=== PATIENT | male | born 1980 | race American Indian/Alaskan Native ===

== ENCOUNTER 2016-11-09 22:04 | Emergency (ER) | payer SELFPAY ==
[2016-11-09 22:40] VITALS: BP 136/96
[2016-11-10] MEDS ORDERED: MOTRIN PO ONE (00:05)
--- NOTE | 2016-11-10 00:06 | Emergency Department Report ---
- General Chief Complaint: Wound/Laceration Stated Complaint: CUT ON NOSE Time Seen by Provider: 11/09/16 23:47 Source: patient Mode of arrival: Ambulatory Limitations: No Limitations - History of Present Illness Initial Comments: This is a 36-year-old male nontoxic, well nourished in appearance, no acute signs of distress that presents to the ED complaining of laceration to the left side status post direct blow from a car door. Patient stated around 9 PM today he opened the door and hit his left side nose. Patient denies any loss of consciousness or head trauma. Patient stated received a tetanus shot 2 years ago when he was in correction. Patient denies any fever, chills, headache, bleeding, nausea, vomiting, chest pain or shortness of breath. Patient stated upon arrival he had a headache that was slight but is subsided currently. Patient denies any allergies or significant past medical history. -: Gradual, This evening Location: other (left nose) Place: outdoors Patient Tetanus UTD: Yes Context: accidental Associated Symptoms: none, pain. denies: loss of feeling/numbness, suspect foreign body present, unable to move injured part, weakness followed by dizziness, nausea/vomiting, fever - Related Data Previous Rx's Medication Instructions Recorded Last Taken Type predniSONE [Deltasone] 1 tab PO BID #8 tablet 03/21/13 Unknown Rx Cephalexin [Keflex] 500 mg PO Q8HR 5 Days 11/10/16 Unknown Rx Ibuprofen [Motrin 600 MG tab] 600 mg PO Q8H PRN #30 tablet 11/10/16 Unknown Rx Allergies Allergy/AdvReac Type Severity Reaction Status Date / Time No Known Allergies Allergy Verified 03/21/13 03:48 ED Review of Systems ROS: Stated complaint: CUT ON NOSE Other details as noted in HPI Constitutional: denies: chills, fever Eyes: denies: eye pain, eye discharge, vision change ENT: denies: ear pain, throat pain Respiratory: denies: cough, shortness of breath, wheezing Cardiovascular: denies: chest pain, palpitations Endocrine: no symptoms reported Gastrointestinal: denies: abdominal pain, nausea, diarrhea Genitourinary: denies: urgency, dysuria Musculoskeletal: denies: back pain, joint swelling, arthralgia Skin: denies: rash, lesions Neurological: denies: headache, weakness, paresthesias Psychiatric: denies: anxiety, depression Hematological/Lymphatic: denies: easy bleeding, easy bruising ED Past Medical Hx - Past Medical History Previous Medical History?: No - Surgical History Past Surgical History?: Yes Additional Surgical History: left leg surgery - Social History Smoking Status: Never Smoker Substance Use Type: Alcohol - Medications Home Medications: Home Medications Medication Instructions Recorded Confirmed Last Taken Type predniSONE [Deltasone] 1 tab PO BID #8 tablet 03/21/13 Unknown Rx Cephalexin [Keflex] 500 mg PO Q8HR 5 Days 11/10/16 Unknown Rx Ibuprofen [Motrin 600 MG tab] 600 mg PO Q8H PRN #30 tablet 11/10/16 Unknown Rx ED Physical Exam - General Limitations: No Limitations General appearance: alert, in no apparent distress - Head Head exam: Present: atraumatic, normocephalic, normal inspection - Eye Eye exam: Present: normal appearance, PERRL, EOMI. Absent: scleral icterus, conjunctival injection, nystagmus, periorbital swelling, periorbital tenderness Pupils: Present: normal accommodation - ENT ENT exam: Present: normal exam, normal orophraynx, mucous membranes moist, TM's normal bilaterally, normal external ear exam - Neck Neck exam: Present: normal inspection, full ROM. Absent: tenderness, meningismus, lymphadenopathy, thyromegaly - Respiratory Respiratory exam: Present: normal lung sounds bilaterally. Absent: respiratory distress, wheezes, rales, rhonchi, stridor, chest wall tenderness, accessory muscle use, decreased breath sounds, prolonged expiratory - Cardiovascular Cardiovascular Exam: Present: regular rate, normal rhythm, normal heart sounds. Absent: bradycardia, tachycardia, irregular rhythm, systolic murmur, diastolic murmur, rubs, gallop - GI/Abdominal GI/Abdominal exam: Present: soft, normal bowel sounds. Absent: distended, tenderness, guarding, rebound, rigid, diminished bowel sounds - Rectal Rectal exam: Present: deferred - Extremities Exam Extremities exam: Present: normal inspection, full ROM, normal capillary refill. Absent: tenderness, pedal edema, joint swelling, calf tenderness - Back Exam Back exam: Present: normal inspection, full ROM. Absent: tenderness, CVA tenderness (R), CVA tenderness (L), muscle spasm, paraspinal tenderness, vertebral tenderness, rash noted - Neurological Exam Neurological exam: Present: alert, oriented X3, CN II-XII intact, normal gait, reflexes normal - Psychiatric Psychiatric exam: Present: normal affect, normal mood - Skin Skin exam: Present: warm, dry, intact, normal color. Absent: rash - Other Other exam information: 1 cm superficial laceration to the left nose region. No pus or drainage noted. No swelling. No bleeding. ED Course Vital Signs 11/09/16 22:34 Temperature 98.5 F Pulse Rate 85 Respiratory 18 Rate Blood Pressure 136/96 Blood Pressure 136/96 [Right] O2 Sat by Pulse 95 Oximetry - Reevaluation(s) Reevaluation #1: 11/10/16 00:06 Patient is able to speak full sentences but no signs of distress. - Laceration /Wound Repair Nose Wound Location: face (left-sided nose) Wound Length (cm): 1 Wound's Depth, Shape: superficial Wound Explored: clean Irrigated w/ Saline (ccs): 10 Betadine Prep?: Yes Wound Debrided: minimal Wound Repaired With: Dermabond Sterile Dressing Applied?: No Progress: Under sterile field, I used Betadine to clean the area. I then used 10 mL of normal saline to flush the area. I then used Dermabond to close the laceration. No bleeding bleeding noted. Patient tolerated procedure well with no signs of distress. ED Medical Decision Making - Medical Decision Making ED course; this is a 36-year-old male that presents with 1 inch laceration to the left nose 1- patient was examined by myself. Laceration has been repaired with Dermabond. 2- patient was discharged with Keflex and was instructed to finish full course of antibiotic. 3- patient was also instructed to follow-up with her primary care doctor in 3-5 days or if symptoms such as fever, chills, pus, drainage, swelling, stiffness, headache short of breath or chest pain return to emergency room as soon as possible. 4- At time time of discharge, the patient does not seem toxic or ill in appearance. No acute signs of distress noted. Patient agrees to discharge treatment plan of care. No further questions noted by the patient. Critical care attestation.: If time is entered above; I have spent that time in minutes in the direct care of this critically ill patient, excluding procedure time. ED Disposition Clinical Impression: Laceration Disposition: [id number] TO HOME OR SELFCARE Is pt being admited?: No Does the pt Need Aspirin: No Condition: Stable Instructions: Laceration (ED), Cephalexin (By mouth) Additional Instructions: follow-up with your primary care doctor in 3-5 days or if symptoms such as fever , chills, pus, drainage, swelling, stiffness, headache short of breath or chest pain return to emergency room as soon as possible. Take full course of antibiotics and was prescribed 2. Prescriptions: Cephalexin [Keflex] 500 mg PO Q8HR 5 Days Ibuprofen [Motrin 600 MG tab] 600 mg PO Q8H PRN #30 tablet PRN Reason: Pain Referrals: PRIMARY CAREMD [Primary Care Provider] - 3-5 Days DENNY CUMMINGS MD [Staff Physician] - 3-5 Days [facility] [Outside] - 3-5 Days Forms: Work/School Release Form(ED)
== END 2016-11-10 01:50 | disposition home or self-care (01) ==
LOC: ED 22:04
DX: S01.21XA Laceration without foreign body of nose, initial encounter (principal); W22.8XXA Striking against or struck by other objects, initial encounter; Y93.9 Activity, unspecified; Y92.9 Unspecified place or not applicable; Y99.9 Unspecified external cause status